=== PATIENT | female | born 1955 | race Caucasian/White ===

== ENCOUNTER 2017-12-13 20:15 | Observation (INO) | payer OTHER ==
--- NOTE | 2017-12-13 20:28 | EDPHY ---
H & P Stated Complaint: stg 4 breast ca with plueral effusion and pnumo hx Time Seen by Provider: 12/13/17 20:28 - Personal History Current Tetanus/Diphtheria Vaccine: No Current Tetanus Diphtheria and Acellular Pertussis (TDAP): No - Medical/Surgical History Hx Asthma: No Hx Chronic Respiratory Disease: No Hx Diabetes: No Hx Cardiac Disease: No Hx Renal Disease: No Hx Cirrhosis: No Hx Alcoholism: No Other PMH: br ca. pleural effusions - Social History Smoking Status: Never smoked Constitutional: Initial Vital Signs Heart Rate 104 H 12/13/17 20:20 Respiratory Rate 30 H 12/13/17 20:20 Blood Pressure 131/107 H 12/13/17 20:20 O2 Sat (%) 96 12/13/17 20:20 O2 Delivery Mode Room Air Allergies/Adverse Reactions: No Known Allergies Allergy (Unverified 12/13/17 20:20) Home Medications: Medication Instructions Recorded NK [No Known Home Meds] 12/13/17 Medical Decision Making - Diagnostics Imaging Results: Imaging Impressions Abdomen CT 12/13/17 20:36 Impression: 1. Extensive hepatic metastatic disease. 2. Breast cancer is noted involving the chest wall, as detailed above. 3. No high-grade mechanical bowel obstruction. There is gaseous distention of the colon in the area of the hepatic flexure with fecal material spread throughout the colon to the level of the rectum. 4. Minimally dilated and fluid-filled small bowel loops are seen in the pelvis which could reflect minimal enteritis. 5. See above report for additional findings. Results called and discussed with Brain Simpson MD on December 13, 2017 at 2153 hours. Imaging: Discussed imaging studies w/ rn call center Radiologist, I viewed and interpreted images myself ED Course/Re-evaluation: CHIEF COMPLAINT: Left-sided abdominal pain HISTORY OF PRESENT ILLNESS: The patient is a 62 y/o female with a history of stage 4 breast cancer complaining of worsening left-sided abdominal pain, onset today. She has metastatic breast cancer with a recent malignant pleural effusion. Today, she initially thought she was constipated but has been unable to have a bowel movement even though she feels like she needs to. She has also been burping, has a decreased appetite, and is nauseous. Took simethicone prior to arrival. No chest pain, shortness of breath, urinary complaints, numbness, paresthesias, or fever. REVIEW OF SYSTEMS: A 10 point review of systems was performed and is negative with the exception of the elements mentioned in the history of present illness. PHYSICAL EXAM: HR, BP, O2 Sat, RR. Temp noted General Appearance: Alert, well hydrated, appropriate, and non-toxic appearing. Head: Atraumatic without scalp tenderness or obvious injury Eyes: Pupils equal, round, reactive to light and accommodation, EOMI, no trauma , no injection. Ears: Clear bilaterally, no perforation, normal landmarks Nose: Atraumatic, no rhinorrhea, clear. Throat: There is no erythema or exudates, no lesions, normal tonsils, mucus membranes moist. Neck: Supple, nontender, no lymphadenopathy. Respiratory: No retractions, no distress, no wheezes, and no accessory muscle use. Lungs are clear to auscultation bilaterally. Cardiovascular: Regular rate and rhythm, no murmurs, rubs, or gallops. Good capillary refill all extremities. Gastrointestinal: Left upper quadrant tenderness to palpation and mild abdominal distension. Abdomen is soft, no masses, no rebound, no guarding, no peritoneal signs. Musculoskeletal: Normal active ROM of all extremities, atraumatic. Neurological: Alert, appropriate, and interactive. Nonfocal neuro Skin: No rashes, good turgor, no nodules on palpation. Past medical history: Stage 4 breast cancer (diagnosed 2009), pleural effusions Past surgical history: Mastectomy Family history: Denies Social history: Daughter at bedside, , lives in [place] DIAGNOSTICS/PROCEDURES/CRITICAL CARE TIME: Abdominopelvic CT: Multiple mets to her liver and chest wall. No sign of obstruction. DIFFERENTIAL DIAGNOSIS: The differential diagnosis for the patient's abdominal pain included but was not limited to functional ileus, ovarian cyst, pelvic inflammatory disease, ovarian torsion, urinary tract infection, ectopic , cholecystitis, and appendicitis. MEDICAL DECISION MAKING: The patient is a 62 y/o female with a history of stage 4 breast cancer presenting with severe left upper quadrant tenderness to palpation, mild abdominal distension, and nausea. Abdominopelvic CT and labs ordered. 1L IV NS, 4mg IV Zofran, 30mg IV Toradol, and 1mg IV Dilaudid given. 2149: Spoke with Dr. Matute, radiologist, regarding patient's CT. There are multiple mets to her liver and chest wall. There is no sign of obstruction. 2153: Reassessed patient and discussed imaging and laboratory finding. She states that prior imaging studies revealed lesions to her liver and mets to her chest wall. I have discussed plan for admission, which she and her daughter are comfortable with. Patient will have an NG tube placed. Patient's symptoms are consistent with a functional ileus. 2206: Consulted with hospitalist service, Dr. Shin accepts admission of this patient. - Data Points Laboratory Results: Laboratory Results 12/13/17 20:30 12/13/17 20:30 12/13/17 12/13/17 12/13/17 20:40 20:30 20:30 WBC 10.09 10^3/uL H 10^3/uL (3.80-9.50) RBC 5.03 10^6/uL 10^6/uL (4.18-5.33) Hgb 14.7 g/dL g/dL (12.6-16.3) POC Hgb 16.0 gm/dL gm/dL (12.6-16.3) Hct 44.8 % % (38.0-47.0) POC Hct 47 % % (38-47) MCV 89.1 fL fL (81.5-99.8) MCH 29.2 pg pg (27.9-34.1) MCHC 32.8 g/dL g/dL (32.4-36.7) RDW 13.6 % % (11.5-15.2) Plt Count 470 10^3/uL H 10^3/uL (150-400) MPV 8.9 fL fL (8.7-11.7) Neut % (Auto) 67.0 % % (39.3-74.2) Lymph % (Auto) 23.6 % % (15.0-45.0) [place] % (Auto) 7.5 % % (4.5-13.0) Eos % (Auto) 1.3 % % (0.6-7.6) Baso % (Auto) 0.3 % % (0.3-1.7) Nucleat RBC Rel Count 0.0 % % (0.0-0.2) Absolute Neuts (auto) 6.76 10^3/uL H 10^3/uL (1.70-6.50) Absolute Lymphs (auto) 2.38 10^3/uL 10^3/uL (1.00-3.00) Absolute Monos (auto) 0.76 10^3/uL 10^3/uL (0.30-0.80) Absolute Eos (auto) 0.13 10^3/uL 10^3/uL (0.03-0.40) Absolute Basos (auto) 0.03 10^3/uL 10^3/uL (0.02-0.10) Absolute Nucleated RBC 0.00 10^3/uL 10^3/uL (0-0.01) Immature Gran % 0.3 % % (0.0-1.1) Immature Gran # 0.03 10^3/uL 10^3/uL (0.00-0.10) POC Sodium 140 mEq/L mEq/L (135-145) Sodium 141 mEq/L mEq/L (135-145) POC Potassium 4.1 mEq/L mEq/L (3.3-5.0) Potassium 4.5 mEq/L mEq/L (3.5-5.2) POC Chloride 102 mEq/L mEq/L (97-110) Chloride 100 mEq/L mEq/L (97-110) Carbon Dioxide 28 mEq/l mEq/l (22-31) Anion Gap 13 mEq/L mEq/L (8-16) POC BUN 12 mg/dL mg/dL (7-23) BUN 13 mg/dL mg/dL (7-23) Creatinine 0.7 mg/dL mg/dL (0.6-1.0) POC Creatinine 0.7 mg/dL mg/dL (0.6-1.0) Estimated GFR > 60 Glucose 86 mg/dL mg/dL (70-100) POC Glucose 95 mg/dL mg/dL (70-100) Calcium 9.6 mg/dL mg/dL (8.5-10.4) Total Bilirubin 0.5 mg/dL mg/dL (0.1-1.4) Conjugated Bilirubin 0.4 mg/dL mg/dL (0.0-0.5) Unconjugated Bilirubin 0.1 mg/dL mg/dL (0.0-1.1) AST 60 IU/L H IU/L (14-46) ALT 52 IU/L IU/L (9-52) Alkaline Phosphatase 115 IU/L IU/L (38-126) Total Protein 7.1 g/dL g/dL (6.3-8.2) Albumin 4.2 g/dL g/dL (3.5-5.0) Lipase 168 IU/L IU/L (23-300) Medications Given: Discontinued Medications Hydromorphone HCl (Dilaudid) 1 mg IVP EDNOW ONE Stop: 12/13/17 20:36 Last Admin: 12/13/17 20:46 Dose: 1 mg Sodium Chloride (Ns) 1,000 mls @ 0 mls/hr IV EDNOW ONE; Wide Open PRN Reason: Protocol Stop: 12/13/17 20:36 Last Admin: 12/13/17 20:44 Dose: 1,000 mls Ketorolac Tromethamine (Toradol) 30 mg IVP EDNOW ONE Stop: 12/13/17 20:36 Last Admin: 12/13/17 20:48 Dose: 30 mg Ondansetron HCl (Zofran) 4 mg IVP EDNOW ONE Stop: 12/13/17 20:36 Last Admin: 12/13/17 20:45 Dose: 4 mg Point of Care Test Results: 12/13/17 20:40 POC Sodium 140 POC Potassium 4.1 POC Chloride 102 POC BUN 12 POC Creatinine 0.7 POC Glucose 95 Departure - Departure Disposition: [facility] Inpatient Acute Clinical Impression: Functional ileus, Metastatic breast cancer Abdominal pain Qualifiers: Abdominal location: right upper quadrant Qualified Code(s): R10.11 - Right upper quadrant pain Condition: Fair Report Scribed for: Brain Simpson Report Scribed by: Rajwinder Araujo Date of Report: 12/13/17 Time of Report: 20:29
[2017-12-13] MEDS ORDERED: HYDROmorphONE/DILAUDID 2 MG/ML INJ IVP ONE (20:35)
[2017-12-13] MEDS ORDERED: ONDANSETRON 4 MG/2 ML VIAL IVP ONE (20:35)
[2017-12-13] MEDS ORDERED: KETOROLAC 30 MG/1 ML SDV IVP ONE (20:35)
[2017-12-13] MEDS ORDERED: NS 1,000 ML IV ONE (20:35)
[2017-12-13] MEDS ORDERED: IOPAMIDOL (ISOVUE-300) 100 ML BTL ONE (20:49)
[2017-12-13 20:50] LABS: PLATELET COUNT 470 10^3/uL (150-400)
[2017-12-13] MEDS ORDERED: LIDOCAINE 2% JELLY 20 ML (UROJECT) ONE (22:10)
[2017-12-13] MEDS ORDERED: ONDANSETRON 4 MG/2 ML VIAL IVP PRN (22:15)
[2017-12-13] MEDS ORDERED: PROMETHAZINE HCL 25 MG/ML INJ IVP PRN (22:15)
[2017-12-13] MEDS ORDERED: HYDROmorphone HCL/NS 0.5 MG/ML SYR IVP PRN (22:15)
[2017-12-13] MEDS ORDERED: HYDROmorphONE/DILAUDID 2 MG TAB PO PRN (22:15)
[2017-12-13] MEDS ORDERED: ONDANSETRON DISINTEGRATING 4 MG TAB PO PRN (22:15)
[2017-12-13] MEDS ORDERED: D5W 1/2 NS 1,000 ML IV SCH (22:15)
[2017-12-13] MEDS ORDERED: ACETAMINOPHEN 325 MG TAB PO PRN (22:15)
[2017-12-13] MEDS ORDERED: BENZOCAINE UNIT DOSE SPRAY HURRICAINE MM ONE (22:30)
--- NOTE | 2017-12-14 00:57 | PDGENHP ---
History and Physical - Chief Complaint Abdominal pain - History of Present Illness 62 yo F w/ hx of metastatic breast CA presents with abdominal pain. Patient has acute onset of LUQ abdominal pain around 6 PM today. This was accompanied by distention, belching, and significant nausea. The patient has not experienced flatus or had a bowel movement since the start of the pain. At the time of my evaluation symptoms were improved after NGT placement and pain medication. Patient states that she has been noticing early satiety, indigestion, and increased gas for several months now. She is currently not under treatment for breast cancer and mostly takes occasional NSAIDs. History Information - Allergies/Home Medication List Allergies/Adverse Reactions: No Known Allergies Allergy (Unverified 12/13/17 20:20) Home Medications: NK [No Known Home Meds] 12/13/17 [Last Taken Unknown] I have personally reviewed and updated: family history, medical history - Past Medical History cancer (Breast cancer, metastatic) - Surgical History Reports: mastectomy (Bilateral) - Family History Additional family history: Denies familiy hx of cancer - Social History Smoking Status: Never smoked Review of Systems Review of Systems: ROS: 10pt was reviewed & negative except for what was stated in HPI & below Physical Exam Physical Exam: Temp Pulse Resp BP Pulse Ox 90 16 114/75 94 12/13/17 22:15 12/13/17 22:15 12/13/17 22:15 12/13/17 22:15 Constitutional: no apparent distress, uncomfortable Eyes: PERRL, EOMI Ears, Nose, Mouth, Throat: moist mucous membranes, no oral mucosal ulcers Cardiovascular: regular rate and rhythym, no murmur, rub, or gallop Respiratory: no respiratory distress, no rales or rhonchi Gastrointestinal: normoactive bowel sounds, tenderness (Epi-gastric), distension , No guarding, No rebound Skin: warm, other (Cancerious invasion of chest wall evident on inspection, several non-healing wounds) Neurologic: AAOx3, CN II-XII Intact Psychiatric: interacting appropriately, not anxious Lab Data & Imaging Review 12/13/17 20:30 12/13/17 20:30 WBC 10.09 10^3/uL (3.80-9.50) H 12/13/17 20:30 RBC 5.03 10^6/uL (4.18-5.33) 12/13/17 20:30 Hgb 14.7 g/dL (12.6-16.3) 12/13/17 20:30 POC Hgb 16.0 gm/dL (12.6-16.3) 12/13/17 20:40 Hct 44.8 % (38.0-47.0) 12/13/17 20:30 POC Hct 47 % (38-47) 12/13/17 20:40 MCV 89.1 fL (81.5-99.8) 12/13/17 20:30 MCH 29.2 pg (27.9-34.1) 12/13/17 20:30 MCHC 32.8 g/dL (32.4-36.7) 12/13/17 20:30 RDW 13.6 % (11.5-15.2) 12/13/17 20:30 Plt Count 470 10^3/uL (150-400) H 12/13/17 20:30 MPV 8.9 fL (8.7-11.7) 12/13/17 20:30 Neut % (Auto) 67.0 % (39.3-74.2) 12/13/17 20:30 Lymph % (Auto) 23.6 % (15.0-45.0) 12/13/17 20:30 [place] % (Auto) 7.5 % (4.5-13.0) 12/13/17 20:30 Eos % (Auto) 1.3 % (0.6-7.6) 12/13/17 20:30 Baso % (Auto) 0.3 % (0.3-1.7) 12/13/17 20:30 Nucleat RBC Rel Count 0.0 % (0.0-0.2) 12/13/17 20:30 Absolute Neuts (auto) 6.76 10^3/uL (1.70-6.50) H 12/13/17 20:30 Absolute Lymphs (auto) 2.38 10^3/uL (1.00-3.00) 12/13/17 20:30 Absolute Monos (auto) 0.76 10^3/uL (0.30-0.80) 12/13/17 20:30 Absolute Eos (auto) 0.13 10^3/uL (0.03-0.40) 12/13/17 20:30 Absolute Basos (auto) 0.03 10^3/uL (0.02-0.10) 12/13/17 20:30 Absolute Nucleated RBC 0.00 10^3/uL (0-0.01) 12/13/17 20:30 Immature Gran % 0.3 % (0.0-1.1) 12/13/17 20:30 Immature Gran # 0.03 10^3/uL (0.00-0.10) 12/13/17 20:30 VBG Lactic Acid 0.9 mmol/L (0.7-2.1) 12/13/17 22:19 POC Sodium 140 mEq/L (135-145) 12/13/17 20:40 Sodium 141 mEq/L (135-145) 12/13/17 20:30 POC Potassium 4.1 mEq/L (3.3-5.0) 12/13/17 20:40 Potassium 4.5 mEq/L (3.5-5.2) 12/13/17 20:30 POC Chloride 102 mEq/L (97-110) 12/13/17 20:40 Chloride 100 mEq/L (97-110) 12/13/17 20:30 Carbon Dioxide 28 mEq/l (22-31) 12/13/17 20:30 Anion Gap 13 mEq/L (8-16) 12/13/17 20:30 POC BUN 12 mg/dL (7-23) 12/13/17 20:40 BUN 13 mg/dL (7-23) 12/13/17 20:30 Creatinine 0.7 mg/dL (0.6-1.0) 12/13/17 20:30 POC Creatinine 0.7 mg/dL (0.6-1.0) 12/13/17 20:40 Estimated GFR > 60 12/13/17 20:30 Glucose 86 mg/dL (70-100) 12/13/17 20:30 POC Glucose 95 mg/dL (70-100) 12/13/17 20:40 Calcium 9.6 mg/dL (8.5-10.4) 12/13/17 20:30 Total Bilirubin 0.5 mg/dL (0.1-1.4) 12/13/17 20:30 Conjugated Bilirubin 0.4 mg/dL (0.0-0.5) 12/13/17 20:30 Unconjugated Bilirubin 0.1 mg/dL (0.0-1.1) 12/13/17 20:30 AST 60 IU/L (14-46) H 12/13/17 20:30 ALT 52 IU/L (9-52) 12/13/17 20:30 Alkaline Phosphatase 115 IU/L (38-126) 12/13/17 20:30 Total Protein 7.1 g/dL (6.3-8.2) 12/13/17 20:30 Albumin 4.2 g/dL (3.5-5.0) 12/13/17 20:30 Lipase 168 IU/L (23-300) 12/13/17 20:30 Imaging Review: Imaging Impressions Abdomen CT 12/13/17 20:36 Impression: 1. Extensive hepatic metastatic disease. 2. Breast cancer is noted involving the chest wall, as detailed above. 3. No high-grade mechanical bowel obstruction. There is gaseous distention of the colon in the area of the hepatic flexure with fecal material spread throughout the colon to the level of the rectum. 4. Minimally dilated and fluid-filled small bowel loops are seen in the pelvis which could reflect minimal enteritis. 5. See above report for additional findings. Results called and discussed with Brain Simpson MD on December 13, 2017 at 2153 hours. Abdomen X-Ray 12/13/17 22:43 Impression: Tip of the nasogastric tube is in the expected location of the body of the stomach. Assessment & Plan Assessment: 62 yo F w/ metastatic breast CA presents w/ abdominal pain. Plan: 1. Abdominal pain - Presentation is most consistent with ileus or possibly gastroparesis. CT reveals metastatic disease in the liver and bowel distention w / some possibility of enteritis. Symptoms improved with pain medicine and NGT. - NGT, pain control, anti-emetics, ADAT 2. Metastatic breast CA - Diagnosed in 2009, s/p bilateral mastectomies and treatment with various oral agents such as Tamoxifen and Exemestane. She is currently not under treatment. She is hoping to be able to join a clinical trial soon. Diet - Clears, ADAT Code - Full Ppx - LMWH Dispo - Admit under observation status
[2017-12-14 04:45] LABS: PLATELET COUNT 343 10^3/uL (150-400)
[2017-12-14] MEDS ORDERED: ENOXAPARIN 40 MG/0.4 ML SYR SC SCH (09:00)
--- NOTE | 2017-12-14 09:10 | ASMTCMCOM ---
CM Note CM Note Notes: 12/14/2017 Case Management Note Met w/pt. WYATT signed. Pt lives in [place] and was dropping her daughter off at [facility] for flight home to [place]. Daughter is Sophia [phone]. Sophia lives in [facility]. Pt lives with her Kumar in [place] [phone]. Pt states she has an appointment tomorrow morning at 9:30 with her Oncologist at the [facility]: Dr. Garcia. Her oncologist in [place] is Dr. Deidra Hatch. There are currently no OT or PT evals ordered. Pt has not used a home care agency in the past. Case Management d/c poc: to be determined. Case Management to follow. Date Signed: 12/14/2017 09:10 AM Electronically Signed By:Luz Luna RN
--- NOTE | 2017-12-14 10:37 | WOCRNPDOC ---
WOCRN Advanced Assessment Note - Skin Integrity Problem, Advanced Assess Left Breast Dressing Type: Other Other Dressing Type: bordered foam Dressing Description: Shadowed Exudate Amount: Moderate Exudate Color: Reddish/Yellow Exudate Characteristic(s): Serosanguinous, Thick Integumentary Issue Intervention: Visualized Under Dressing Sydnie Wound Tissue: Blanching, Erythema, Scarred Syndie Wound Swelling: Mild Wound Bed Color: Red, Yellow Wound Bed Constitution: Red/[place] - Non Granular Tissue (90%), Loose Slough (10%) Wound Edges: Scarred Site Odor: None Site Measurement - Head-to-Toe Length X Width X Depth (cm): 2.5cmx2.4cmx0.1cm Skin Integrity Problem Comment: Chronic, non-healing wound r/t metastatic breast cancer. Wound bed mostly smooth, non-granulating tissues w/ some loose slough. Erythema periwound, w/ scar tissue, no significant swelling. Patient reports changing band aid 2x/day r/t drainage. Will have nursing apply honey alginate dressing to help loosen slough and manage exudate more effectively. Patient has been managing these wounds for a while, and does not have any concerns about taking care of them after DC. Right Breast Dressing Type: Open to Air Exudate Characteristic(s): Dried Sydnie Wound Tissue: Erythema, Scarred Sydnie Wound Swelling: None Wound Bed Color: Brown Wound Bed Constitution: Scab Site Odor: None Site Measurement - Head-to-Toe Length X Width X Depth (cm): [id number] scab Skin Integrity Problem Comment: Intact scab noted over R breast, no fluctuance or erythema observed. This is a chronic wound r/t breast carcinoma, which patient has been managing w/ band aids. She reports keeping this wound covered because seat belt irritates it. Will have nursing apply honey gel to soften scab and confer some antimicrobial benefit, followed by Jarred to protect. Patient reports being able to mange these wounds herself ongoing.
[2017-12-14 11:49] VITALS: BP 129/83
--- NOTE | 2017-12-14 15:21 | PDDCSUM ---
Discharge Summary Discharge Summary: DISCHARGE SUMMARY FOLLOW-UP ITEMS: Reassess nausea and abdominal symptoms as an outpatient DATE OF ADMISSION: 12/13/2017 DATE OF DISCHARGE: 12/14/2017 DISCHARGE DIAGNOSES: 1. Acute suspected viral gastroenteritis 2. Metastatic breast cancer CONSULTATIONS: None PROCEDURES / IMAGING: Nasogastric tube, abdominal CT demonstrating liver metastases comma chest wall metastases, no small-bowel obstruction, some increased gas the peptic flexure with some dilated loops of small bowel CHIEF COMPLAINT: Acute abdominal pain SUBJECTIVE: Patient is feeling well at time discharge, she has advanced her diet without any additional symptoms PHYSICAL EXAM ON DISCHARGE: Systolic blood pressure is 105-125, heart rate 80, afebrile overnight, abdomen is soft, minimally tender in the upper abdomen without any guarding, active bowel sounds, heart rhythm is regular with regular rate LABS ON DISCHARGE: White blood count 5800, hemoglobin 11.4, creatinine 0.6, potassium 4.2, liver panel unremarkable, lactic acid normal HOSPITAL COURSE BY PROBLEM: The patient presented with acute abdominal pain and nausea, most likely secondary to viral gastroenteritis evidenced by some fluid-filled loops of small bowel on abdominal CT, and a relatively self-limited nature. Given the distension which was present, nasogastric tube was placed for supportive care, and this was safely removed on the day of discharge with subsequent oral tolerance of solids and liquids. She received supportive care with pain and nausea medications and the pain is absent at time of discharge. Given her risk for gastritis and peptic ulcers in the setting of regular use of nonsteroidal anti-inflammatory medications, I recommended that she preemptively begin taking an H2 hernandez twice daily. Also recommended that she use as needed Reglan for any ongoing nausea, to avoid the constipating side effects of other antiemetics. The patient reports that she is very sensitive to constipating medications, and that is why I would recommend initially trying H2 hernandez and Reglan as opposed to a proton pump inhibitor and other traditional antiemetics. She has a follow-up appointment with [facility] tomorrow, and I recommend that she reassess symptoms at that time. DISCHARGE MEDICATIONS: Please see official discharge medication reconciliation sheet in chart , continue home medications with the addition of ranitidine 150 twice daily, Reglan 5 mg as needed. DISCHARGE INSTRUCTIONS: Please follow up with [facility] tomorrow.
== END 2017-12-14 15:44 | disposition home or self-care (01) ==
LOC: F1N 12-14 01:19
PROVIDERS: ADMIT Student in an Organized Health Care Education/Training Program; ATTEND Student in an Organized Health Care Education/Training Program
DX: R10.9 Unspecified abdominal pain (principal); E86.9 Volume depletion, unspecified; R11.0 Nausea; C78.7 Secondary malignant neoplasm of liver and intrahepatic bile duct; C79.89 Secondary malignant neoplasm of other specified sites; Z85.3 Personal history of malignant neoplasm of breast; Z90.13 Acquired absence of bilateral breasts and nipples
CPT/HCPCS: 74018; 74177; 96361; 96374; 96375; 99285; G0378; J1170; J1885; J2405; Q9967; 82947-QW; J1650